=== PATIENT | male | born 1985 | race American Indian/Alaskan Native ===

== ENCOUNTER 2020-07-08 19:31 | Emergency (ER) | payer OTHER ==
[~2020-07-08] VITALS: Ht 177.8 cm; Wt 108.9 kg
[2020-07-08] MEDS ORDERED: LISINOPRIL5 MG PO (19:46)
[2020-07-08] MEDS ORDERED: BENZOYL PEROXID TP (19:47)
[2020-07-08] MEDS ORDERED: VITAMIN D350 MCG PO (19:47)
[2020-07-08] MEDS ORDERED: LISINOPRIL10 MG PO (19:48)
--- NOTE | 2020-07-09 10:55 | EKG ---
[facility] [address] [facility] [place], [place] [address] Signed Normal sinus rhythm Normal ECG No previous ECGs available Confirmed by MARCO DIAZ DO ([id number]) on 07/09/2020 10:55:23 AM Electronically Signed By: MARCO DIAZ DO 07/09/20 1055 PATIENT NAME: JAVONBONITATRI JR Electrocardiogram DATE OF : 85 PHYSICIAN: MARCO DIAZ DO REPORT #: [id number] REPORT IS CONFIDENTIAL AND NOT TO BE RELEASED WITHOUT AUTHORIZATION
== END 2020-07-08 21:42 | disposition home or self-care (01) ==
LOC: ED 19:31
DX: R07.89 Other chest pain (principal); I10 Essential (primary) hypertension; Z79.899 Other long term (current) drug therapy
CPT/HCPCS: 71045; 80053; 83735; 84484; 85025; 93005; 93010; 99285-25